=== PATIENT | female | born 1995 | race Two or more races ===

== ENCOUNTER 2022-08-26 21:45 | Emergency (ER) | payer SELFPAY ==
[~2022-08-26] VITALS: Ht 167.6 cm; Wt 68.0 kg
[2022-08-26 21:47] VITALS: BP 118/64
[2022-08-26] MEDS ORDERED: IBUP-2029 MT (22:54)
== END 2022-08-26 23:00 | disposition home or self-care (01) ==
LOC: ER 21:45
DX: R51.9 Headache, unspecified (principal); F19.10 Other psychoactive substance abuse, uncomplicated
CPT/HCPCS: 81025; 99283